=== PATIENT | female | born 1990 | race Two or more races ===

== ENCOUNTER 2020-11-16 06:33 | Inpatient (IN) | payer MEDICAID ==
[2020-11-16] MEDS ORDERED: Carboprost Tromethamine 250 MCG/1 ML Amp IM PRN (07:08)
[2020-11-16] MEDS ORDERED: Methylergonovine 0.2 MG/1 ML Amp IM PRN ×2 (07:08→10:06)
[2020-11-16] MEDS ORDERED: Sodium Chloride 0.9% 10 ML Syringe FLUSH PRN (07:08)
[2020-11-16] MEDS ORDERED: Sodium Chloride 0.9% 10 ML SDV IV PRN (07:08)
[2020-11-16] MEDS ORDERED: Sodium Chloride 0.9% 2.5 ML Syringe FLUSH PRN (07:08)
[2020-11-16] MEDS ORDERED: Nalbuphine 10 MG/1 ML Vial IVPUSH PRN (07:08)
[2020-11-16] MEDS ORDERED: Water For Irrigation,Sterile 1,000 ML Container IRR PRN (07:08)
[2020-11-16] MEDS ORDERED: Butorphanol 1 MG/ML SDV IVPUSH PRN (07:08)
[2020-11-16] MEDS ORDERED: Lidocaine 1% 50 ML MDV INJECT PRN (07:08)
[2020-11-16] MEDS ORDERED: Tranexamic Acid 1,000 MG in Sodium Chloride 0.9% 100 ML IV PRN (07:08)
[2020-11-16] MEDS ORDERED: Misoprostol 200 MCG Tab PO PRN (07:08)
[2020-11-16] MEDS ORDERED: Oxytocin/0.9 % Sodium Chloride 30 UNIT/500 ML BAG IV SCH (07:15)
--- NOTE | 2020-11-16 07:19 | PCM.PREANE ---
Preanesthetic Assessment - Anesthesia/Transfusion/Family Hx Anesthesia History: No Prior Anesthesia Family History of Anesthesia Reaction: No Transfusion History: No Prior Transfusion(s) - Review of Systems General: No Symptoms Pulmonary: No Symptoms Cardiovascular: No Symptoms Gastrointestinal: No Symptoms Neurological: No Symptoms Other: Reports: None - Physical Assessment NPO Status Date: 11/16/20 ASA Class: 2 Mental Status: Alert & Oriented x3 Dentition: Reports: Normal Dentition Thyro-Mental Finger Breadths: 3 Mouth Opening Finger Breadths: 3 ROM/Head Extension: Full Lungs: Clear to Auscultation, Normal Respiratory Effort Cardiovascular: Regular Rate, Regular Rhythm - Allergies Allergies/Adverse Reactions: Allergies Allergy/AdvReac Type Severity Reaction Status Date / Time No Known Allergies Allergy Verified 04/14/18 22:39 - Blood Blood Available: No Product(s) Available: None - Anesthesia Plan Pre-Op Medication Ordered: None - Acknowledgements Anesthesia Type Planned: Epidural Pt an Appropriate Candidate for the Planned Anesthesia: Yes Alternatives and Risks of Anesthesia Discussed w Pt/Guardian: Yes Pt/Guardian Understands and Agrees with Anesthesia Plan: Yes PreAnesthesia Questionnaire - Past Health History Medical/Surgical History: Denies 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: - Infectious Disease History Infectious Disease History: Reports: Chicken Pox - HOME MEDS Home Medications: Home Meds Norethindrone [Maggie] 0.35 mg PO DAILY 07/06/16 [History] - CURRENT (IN HOUSE) MEDS Current Meds: Current Medications Butorphanol Tartrate (Butorphanol 1 Mg/Ml Sdv) 1 mg IVPUSH Q1H PRN PRN Reason: Pain (severe 7-10) Carboprost Tromethamine (Carboprost Tromethamine 250 Mcg/1 Ml Amp) 250 mcg IM ASDIRECTED PRN PRN Reason: Post Hemorrhage Oxytocin/Sodium Chloride (Oxytocin 30 Unit/500 Ml-Ns) 30 unit in 500 mls @ 999 mls/hr IV TITRATE ELLEN Tranexamic Acid 1,000 mg/ (Sodium Chloride) 110 mls @ 660 mls/hr IV ONETIME PRN PRN Reason: Bleeding Lactated Ringer's (Ringers, Lactated) 1,000 mls @ 150 mls/hr IV ASDIRECTED ELLEN Lidocaine HCl (Lidocaine 1% 50 Ml Mdv) 50 ml INJECT ONETIME PRN PRN Reason: Laceration repair Methylergonovine Maleate (Methylergonovine 0.2 Mg/1 Ml Amp) 0.2 mg IM ASDIRECTED PRN PRN Reason: Post Hemorrhage Misoprostol (Misoprostol 200 Mcg Tab) 200 mcg PO ONETIME PRN PRN Reason: Post Hemorrhage Nalbuphine HCl (Nalbuphine 10 Mg/1 Ml Vial) 10 mg IVPUSH Q1H PRN PRN Reason: Pain (severe 7-10) Sodium Chloride (Sodium Chloride 0.9% 10 Ml Syringe) 10 ml FLUSH ASDIRECTED PRN PRN Reason: Keep Vein Open Sodium Chloride (Sodium Chloride 0.9% 2.5 Ml Syringe) 2.5 ml FLUSH ASDIRECTED PRN PRN Reason: Keep Vein Open Sodium Chloride (Sodium Chloride 0.9% 10 Ml Sdv) 10 ml IV ASDIRECTED PRN PRN Reason: IV Use Sterile Water (Water For Irrigation,Sterile 1,000 Ml Container) 1,000 ml IRR ASDIRECTED PRN PRN Reason: delivery
[2020-11-16] MEDS: Lactated Ringers 1,000 ML IV SCH ×3 (07:23→10:01)
[2020-11-16] MEDS ORDERED: fentaNYL 100 MCG/2 ML SDV ONE (07:24)
[2020-11-16] MEDS ORDERED: Ropivacaine HCl/PF 200 ML ONE (07:24)
--- NOTE | 2020-11-16 07:42 | PCM.LDHP ---
L&D History of Present Illness - General Date of Service: 11/16/20 Admit Problem/Dx: Patient Status Order with Admit Dx/Problem 11/16/20 07:08 Patient Status [ADT] Routine Admission Diagnosis/Problem Admission Diagnosis/Problem Source of Information: Patient History Limitations: Reports: No Limitations - History of Present Illness Introduction:: 29 year old at 39w2d (EDC 11/21/2020) presented to labor and delivery in spontaneous labor. Reports contractions started last evening around 2100 and were occurring every 2 minutes prior to admission. Denies leaking fluid or vaginal bleeding. Good movement. has been uncomplicated, however, she had growth restriction in a previous . - Related Data Allergies/Adverse Reactions: Allergies Allergy/AdvReac Type Severity Reaction Status Date / Time No Known Allergies Allergy Verified 04/14/18 22:39 Home Medications: Home Meds Norethindrone [Maggie] 0.35 mg PO DAILY 07/06/16 [History] Past Medical History - Past Health History Medical/Surgical History: Denies Medical/Surgical History [employer] History: Reports: - Infectious Disease History Infectious Disease History: Reports: Chicken Pox Social & Family History - Family History Family Medical History: No Pertinent Family History - Caffeine Use Caffeine Use: Reports: Coffee H&P Review of Systems - Review of Systems: Review Of Systems: See Below General: Reports: No Symptoms HEENT: Reports: No Symptoms Pulmonary: Reports: No Symptoms Cardiovascular: Reports: No Symptoms Gastrointestinal: Reports: Abdominal Pain Genitourinary: Reports: No Symptoms Musculoskeletal: Reports: Back Pain Skin: Reports: No Symptoms Psychiatric: Reports: No Symptoms Neurological: Reports: No Symptoms Hematologic/Lymphatic: Reports: No Symptoms Immunologic: Reports: No Symptoms L&D Exam - Exam Exam: See Below - OB Specific Contraction Frequency (min): 2-3 minutes Contraction Intensity: Moderate to Strong Movement: Active Heart Tones: Present Heart Tones per Min: 140 Heart Rate (FHR) Variability: Moderate (6-25 bmp) Presentation: Vertex Estimated Weight: 3100 grams by 36w1d ultrasound - Patel Score Patel Score Cervix Position: Anterior Patel Score Consistency: Soft Patel Score Effacement: >80% Patel Score Dilation: > 5 cm Patel Score Infant's Station: -2 Patel Score Total: 11 - Exam General: Alert Lungs: Normal Respiratory Effort Cardiovascular: Regular Rate GI/Abdominal Exam: Soft, Non-Tender Genitourinary: Normal external exam Back Exam: Normal Inspection, Full Range of Motion Extremities: Normal Inspection, Normal Range of Motion, Non-Tender, No Pedal Edema Skin: Warm, Dry, Intact - Patient Data Lab Results Last 24 hrs: Laboratory Results - last 24 hr 11/16/20 Range/Units 07:01 WBC 13.49 H (4.0-11.0) K/uL RBC 4.57 (4.30-5.90) M/uL Hgb 14.6 (12.0-16.0) g/dL Hct 41.9 (36.0-46.0) % MCV 91.7 (80.0-98.0) fL MCH 31.9 (27.0-32.0) pg MCHC 34.8 (31.0-37.0) g/dL RDW Std Deviation 47.2 (28.0-62.0) fl RDW Coeff of Barrie 14 (11.0-15.0) % Plt Count 251 (150-400) K/uL MPV 9.90 (7.40-12.00) fL Nucleated RBC % 0.0 /100WBC Nucleated RBCs # 0 K/uL Result Diagrams: 11/16/20 07:01 Problem List Initiated/Reviewed/Updated: Yes Orders Last 24hrs: Active Orders 24 hr Category Date Time Status Patient Status [ADT] Routine ADT 11/16/20 07:08 Active Heart Tones [RC] CONTINUOUS Care 11/16/20 07:08 Active Non Stress Test [RC] PER UNIT ROUTINE Care 11/16/20 07:08 Active May Shower [RC] ASDIRECTED Care 11/16/20 07:08 Active Notify Provider [RC] PRN Care 11/16/20 07:08 Active Up ad Bailee [RC] ASDIRECTED Care 11/16/20 07:08 Active Vaginal Exam [RC] PRN Care 11/16/20 07:08 Active Vital Signs [RC] PER UNIT ROUTINE Care 11/16/20 07:08 Active CORONAVIRUS COVID-19 ALEC [MOLEC] Routine Lab 11/16/20 07:08 Received RPR (SYPHILIS SERO) W/ RFLX [REF] Routine Lab 11/16/20 07:01 Received TYPE AND SCREEN [BBK] Routine Lab 11/16/20 07:01 Received Butorphanol [Stadol] Med 11/16/20 07:08 Active 1 mg IVPUSH Q1H PRN Carboprost Tromethamine [Hemabate DS] Med 11/16/20 07:08 Active 250 mcg IM ASDIRECTED PRN Lactated Ringers [Ringers, Lactated] 1,000 ml Med 11/16/20 07:15 Active IV ASDIRECTED Lidocaine 1% [Xylocaine 1%] Med 11/16/20 07:08 Active 50 ml INJECT ONETIME PRN Methylergonovine [Methergine] Med 11/16/20 07:08 Active 0.2 mg IM ASDIRECTED PRN Nalbuphine [Nubain] Med 11/16/20 07:08 Active 10 mg IVPUSH Q1H PRN Oxytocin/0.9 % Sodium Chloride [Oxytocin 30 Unit/500 ML Med 11/16/20 07:15 Active -NS] 30 unit in 500 ml IV TITRATE Sodium Chloride 0.9% [Normal Saline] Med 11/16/20 07:08 Active 10 ml IV ASDIRECTED PRN Sodium Chloride 0.9% [Saline Flush] Med 11/16/20 07:08 Active 2.5 ml FLUSH ASDIRECTED PRN Tranexamic Acid [Cyklokapron] 1,000 mg Med 11/16/20 07:08 Active Sodium Chloride 0.9% [Normal Saline] 100 ml IV ONETIME Water For Irrigation,Sterile [Sterile Water for Med 11/16/20 07:08 Active Irrigation] 1,000 ml IRR ASDIRECTED PRN miSOPROStoL [Cytotec] Med 11/16/20 07:08 Active 200 mcg PO ONETIME PRN Scalp Electrode [WOMSER] Per Unit Routine Oth 11/16/20 07:08 Ordered Peripheral IV Insertion Adult [OM.PC] Routine Oth 11/16/20 07:08 Ordered Resuscitation Status Routine Resus Stat 11/16/20 07:08 Ordered Medication Orders Butorphanol Tartrate (Butorphanol 1 Mg/Ml Sdv) 1 mg IVPUSH Q1H PRN PRN Reason: Pain (severe 7-10) Carboprost Tromethamine (Carboprost Tromethamine 250 Mcg/1 Ml Amp) 250 mcg IM ASDIRECTED PRN PRN Reason: Post Hemorrhage Oxytocin/Sodium Chloride (Oxytocin 30 Unit/500 Ml-Ns) 30 unit in 500 mls @ 999 mls/hr IV TITRATE [facility] Tranexamic Acid 1,000 mg/ (Sodium Chloride) 110 mls @ 660 mls/hr IV ONETIME PRN PRN Reason: Bleeding Lactated Ringer's (Ringers, Lactated) 1,000 mls @ 150 mls/hr IV ASDIRECTED ELLEN Last Admin: 11/16/20 07:30 Dose: 150 mls/hr Documented by: Infusion: 11/16/20 07:30 Dose: 150 mls/hr Documented by: Admin: 11/16/20 07:23 Dose: 150 mls/hr Documented by: DAJA Lidocaine HCl (Lidocaine 1% 50 Ml Mdv) 50 ml INJECT ONETIME PRN PRN Reason: Laceration repair Methylergonovine Maleate (Methylergonovine 0.2 Mg/1 Ml Amp) 0.2 mg IM ASDIRECTED PRN PRN Reason: Post Hemorrhage Misoprostol (Misoprostol 200 Mcg Tab) 200 mcg PO ONETIME PRN PRN Reason: Post Hemorrhage Nalbuphine HCl (Nalbuphine 10 Mg/1 Ml Vial) 10 mg IVPUSH Q1H PRN PRN Reason: Pain (severe 7-10) Sodium Chloride (Sodium Chloride 0.9% 2.5 Ml Syringe) 2.5 ml FLUSH ASDIRECTED PRN PRN Reason: Keep Vein Open Sodium Chloride (Sodium Chloride 0.9% 10 Ml Sdv) 10 ml IV ASDIRECTED PRN PRN Reason: IV Use Sterile Water (Water For Irrigation,Sterile 1,000 Ml Container) 1,000 ml IRR ASDIRECTED PRN PRN Reason: delivery Assessment/Plan Comment:: 29 year old at 39w2d (EDC 11/21/2020) in spontaneous labor * Admit to labor and delivery * COVID-19 test negative * Epidural for pain management * Proceed with expectant management of labor, 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
--- NOTE | 2020-11-16 07:53 | PCM.POSTAN ---
POST ANESTHESIA ASSESSMENT - MENTAL STATUS Mental Status: Alert, Oriented - RESPIRATORY Respiratory Status: Respiratory Rate WNL - CARDIOVASCULAR CV Status: Pulse Rate WNL - GASTROINTESTINAL GI Status: No Symptoms - POST OP HYDRATION Hydration Status: Adequate & Stable (epidural in and pt is comfortable at this time)
[2020-11-16] MEDS ORDERED: Witch Hazel Medicated Pads 40/Jar TOP PRN (10:06)
[2020-11-16] MEDS ORDERED: Lanolin 100% Cream 7 GM Tube TOP PRN (10:06)
[2020-11-16] MEDS ORDERED: Bisacodyl 10 MG Supp RECTAL PRN (10:06)
[2020-11-16] MEDS ORDERED: Ibuprofen 400 MG Tab PO PRN (10:06)
[2020-11-16] MEDS ORDERED: Acetaminophen 500 MG Tab PO PRN (10:06)
[2020-11-16] MEDS ORDERED: Benzocaine/Menthol 20%-0.5% Spray 78 GM Cannister TOP PRN (10:06)
[2020-11-16] MEDS ORDERED: Docusate Sodium 100 MG Cap PO PRN (10:06)
--- NOTE | 2020-11-16 10:10 | PCM.OPNOTE ---
- General Post-Op/Procedure Note Date of Surgery/Procedure: 11/16/20 Operative Procedure(s): TSVD Findings: Liveborn male 9/9 weight pending. Placenta spontaneous Schultze intact with 3 vessels perineum intact Pre Op Diagnosis: 39 weeks active spontaneous labor Post-Op Diagnosis: Same Anesthesia Technique: Epidural Primary Surgeon: Anne Marie Avila Pathology: none EBL in mLs: 300 Complications: None [place]. Condition: Good
[2020-11-16] MEDS: Ibuprofen 800 MG Tab PO PRN ×2 (14:41→21:10)
[2020-11-16] MEDS: Acetaminophen 500 MG Tab PO PRN ×2 (16:48→21:10)
[2020-11-17] MEDS: Acetaminophen 500 MG Tab PO PRN ×2 (01:13→05:28)
[2020-11-17] MEDS: Ibuprofen 800 MG Tab PO PRN ×2 (03:15→11:22)
--- NOTE | 2020-11-17 07:07 | PCM48HPAN ---
Post Anesthesia Note - EVALUATION WITHIN 48HRS OF ANESTHETIC Vital Signs in Normal Range: Yes Patient Participated in Evaluation: Yes Respiratory Function Stable: Yes Airway Patent: Yes Cardiovascular Function Stable: Yes Hydration Status Stable: Yes Pain Control Satisfactory: Yes Nausea and Vomiting Control Satisfactory: Yes Mental Status Recovered: Yes Vital Signs: Last Vital Signs Temp 36.6 C 11/17/20 03:20 Pulse 97 11/16/20 19:56 Resp 17 11/17/20 03:20 BP 141/82 H 11/17/20 03:20 Pulse Ox 96 11/17/20 03:20
[2020-11-17 08:14] VITALS: BP 114/75; PULSE 103
--- NOTE | 2020-11-17 08:42 | OR ---
SURGEON: Anne Marie Avila M.D. DATE OF PROCEDURE: 11/16/2020 DELIVERY NOTE: PREOPERATIVE DIAGNOSIS: A 39-week intrauterine , active spontaneous labor. POSTOPERATIVE DIAGNOSIS: A 39-week intrauterine , active spontaneous labor. PROCEDURE: Term spontaneous vaginal delivery. PRIMARY SURGEON: Anne Marie Avila M.D. ANESTHESIA: Epidural. ESTIMATED BLOOD LOSS: Less than 300 mL. FINDINGS: Live-born male. score of 9 and nine. Weight is pending at dictation. COMPLICATIONS: None known. DISPOSITION: Stable to Recovery. PATHOLOGY SPECIMEN: None. BRIEF HISTORY: This is a 29-year-old female. She is G3, P2-0-0-2. She presented at 39-2/7 weeks' gestation with active spontaneous labor, 5 cm dilated. She requested an epidural upon arrival. She was admitted and she received an epidural for pain control which worked very well. She had artificial rupture of membranes when she was 5 to 6 cm dilated. She progressed to complete. DESCRIPTION OF PROCEDURE: With the patient in dorsal lithotomy position, the patient pushed over 2 contractions to a 5+ station, at which time the head was delivered spontaneously and atraumatically over the perineum with support with subsequent delivery of the infant's shoulders and body without any difficulty. The was bulb suctioned by nose and mouth, and after 1 minute, the cord was doubly clamped and cut, and the was handed to the mother in the presence of the nurse attending delivery. The infant is a liveborn male, score of 9 and nine, weight is pending. Cord blood was collected for cord ABGs as well as routine cord blood sampling. Pitocin was initiated after delivery of the to assist with delivery of the placenta which was delivered spontaneously, Schultze intact with 3 vessels. Upon inspection of pelvis and perineum, there were no periurethral, vaginal sidewall, cervical or rectal lacerations. EBL was less than 300 mL. There were no known complications. Mother and baby remained in LDR in good condition. DAVE / AMINAH /[id number]
--- NOTE | 2020-11-17 08:50 | PCM.PNPP ---
- General Info Date of Service: 11/17/20 Admission Dx/Problem (Free Text): Patient Status Order with Admit Dx/Problem 11/16/20 07:08 Patient Status [ADT] Routine Admission Diagnosis/Problem Admission Diagnosis/Problem Subjective Update: Walking about room during rounds. Pain well controlled. Ambulating and voiding without difficulty. Lochia decreasing. Tolerating regular diet. and supplementing for baby. - General Info Date of Service: 11/17/20 - Patient Data Vital Signs - Most Recent: Last Vital Signs Temp 97.8 F 11/17/20 08:13 Pulse 103 H 11/17/20 08:13 Resp 18 11/17/20 08:13 BP 114/75 11/17/20 08:13 Pulse Ox 94 L 11/17/20 08:13 Weight - Most Recent: 135 lb Lab Results - Last 24 Hours: Laboratory Results - last 24 hr 11/16/20 11/17/20 Range/Units 09:42 04:50 Hgb 13.0 (12.0-16.0) g/dL Hct 38.4 (36.0-46.0) % Cord ABG pH 7.276 (7.18-7.38) Cord ABG Base Excess -3.2 (-10--2) Cord VBG pH 7.386 (7.25-7.45) Cord VBG Base Excess -0.5 H (-10--2) Med Orders - Current: Current Medications Acetaminophen (Acetaminophen 500 Mg Tab) 500 mg PO Q4H PRN PRN Reason: Pain (mild 1-3) Acetaminophen (Acetaminophen 500 Mg Tab) 1,000 mg PO Q4H PRN PRN Reason: Pain (mild 1-3) Last Admin: 11/17/20 05:28 Dose: 1,000 mg Documented by: Benzocaine/Menthol (Benzocaine/Menthol 20%-0.5% [place] 78 Gm Cannister) 78 gm TOP ASDIRECTED PRN PRN Reason: Perineal Comfort Measure Last Admin: 11/16/20 15:39 Dose: 1 canister Documented by: Bisacodyl (Bisacodyl 10 Mg Supp) 10 mg RECTAL ONETIME PRN PRN Reason: Constipation Docusate Sodium (Docusate Sodium 100 Mg Cap) 100 mg PO Q12H PRN PRN Reason: Constipation Emollient Ointment (Lanolin 100% Cream 7 Gm Tube) 0 gm TOP ASDIRECTED PRN PRN Reason: Sore Nipples Last Admin: 11/16/20 15:39 Dose: 1 tube Documented by: Ibuprofen (Ibuprofen 400 Mg Tab) 400 mg PO Q4H PRN PRN Reason: Pain (mild 1-3) Ibuprofen (Ibuprofen 800 Mg Tab) 800 mg PO Q6H PRN PRN Reason: Pain (mild 1-3) Last Admin: 11/17/20 03:15 Dose: 800 mg Documented by: Methylergonovine Maleate (Methylergonovine 0.2 Mg/1 Ml Amp) 0.2 mg IM ONETIME PRN PRN Reason: Excessive Vaginal Bleeding Witch Claudia (Witch Claudia Medicated Pads 40/Jar) 1 pad TOP ASDIRECTED PRN PRN Reason: comfort care Last Admin: 11/16/20 15:38 Dose: 1 tub Documented by: Discontinued Medications Butorphanol Tartrate (Butorphanol 1 Mg/Ml Sdv) 1 mg IVPUSH Q1H PRN PRN Reason: Pain (severe 7-10) Carboprost Tromethamine (Carboprost Tromethamine 250 Mcg/1 Ml Amp) 250 mcg IM ASDIRECTED PRN PRN Reason: Post Hemorrhage Fentanyl (Fentanyl 100 Mcg/2 Ml Sdv) Confirm Administered Dose 100 mcg .ROUTE .Lesson Prep-MED ONE Stop: 11/16/20 07:25 Oxytocin/Sodium Chloride (Oxytocin 30 Unit/500 Ml-Ns) 30 unit in 500 mls @ 999 mls/hr IV TITRATE [facility] Last Admin: 11/16/20 10:01 Dose: 999 mls/hr Documented by: Tranexamic Acid 1,000 mg/ (Sodium Chloride) 110 mls @ 660 mls/hr IV ONETIME PRN PRN Reason: Bleeding Lactated Ringer's (Ringers, Lactated) 1,000 mls @ 150 mls/hr IV ASDIRECTED [facility] Last Admin: 11/16/20 10:01 Dose: 150 mls/hr Documented by: Ropivacaine (Naropin 0.2%) Confirm Administered Dose 200 mls @ as directed .ROUTE .Lesson Prep-MED ONE Stop: 11/16/20 07:25 Lidocaine HCl (Lidocaine 1% 50 Ml Mdv) 50 ml INJECT ONETIME PRN PRN Reason: Laceration repair Methylergonovine Maleate (Methylergonovine 0.2 Mg/1 Ml Amp) 0.2 mg IM ASDIRECTED PRN PRN Reason: Post Hemorrhage Misoprostol (Misoprostol 200 Mcg Tab) 200 mcg PO ONETIME PRN PRN Reason: Post Hemorrhage Nalbuphine HCl (Nalbuphine 10 Mg/1 Ml Vial) 10 mg IVPUSH Q1H PRN PRN Reason: Pain (severe 7-10) Sodium Chloride (Sodium Chloride 0.9% 2.5 Ml Syringe) 2.5 ml FLUSH ASDIRECTED PRN PRN Reason: Keep Vein Open Sodium Chloride (Sodium Chloride 0.9% 10 Ml Sdv) 10 ml IV ASDIRECTED PRN PRN Reason: IV Use Sterile Water (Water For Irrigation,Sterile 1,000 Ml Container) 1,000 ml IRR ASDIRECTED PRN PRN Reason: delivery - Infant Interaction Infant Interaction: Holding Infant Infant Feeding: Attempted ; Nursed Fair/Poor, Other (see below) (supplementing with formula) Support Person: - Recovery Exam Fundal Tone: Firm Fundal Level: At Umbilicus Fundal Placement: Midline Lochia Amount: Scant Lochia Color: Rubra/Red Perineum Description: Intact, Minimal Bruising/Swelling Episiotomy/Laceration: None Bladder Status: Voiding - Exam General: Alert Lungs: Normal Respiratory Effort Cardiovascular: Regular Rate GI/Abdominal Exam: Soft, Non-Tender Extremities: Normal Range of Motion, Non-Tender, Pedal Edema (trace) Skin: Warm, Dry, Intact Neurological: No New Focal Deficit Psy/Mental Status: Normal Mood - Problem List Review Problem List Initiated/Reviewed/Updated: Yes - Plan Plan:: 29 year old PPD1 s/p - Meeting milestones. Desires discharge today. - Reviewed discharge instructions. Patient desires progesterone-only pill for contraception, Rx sent to pharmacy. - Patient to return to clinic in 4 weeks for appointment.
== END 2020-11-17 13:12 | disposition home or self-care (01) | DRG 807 ==
LOC: MW.OBCHECK 06:33 → MW.OB 06:35 → MW.OBCHECK 07:08 → MW.OB 07:08 → OBSVTOIN 09:42 → MW.OB 12:35
PROVIDERS: ADMIT Obstetrics & Gynecology; ATTEND Obstetrics & Gynecology
PROC: 10E0XZZ Delivery of Products of Conception, External Approach (ICD-10-PCS; principal; 2020-11-16)
PROC: 10907ZC Drainage of Amniotic Fluid, Therapeutic from Products of Conception, Via Natural or Artificial Opening (ICD-10-PCS; 2020-11-16)
PROC: 3E0R3BZ Introduction of Anesthetic Agent into Spinal Canal, Percutaneous Approach (ICD-10-PCS; 2020-11-16)
DX: O80 Encounter for full-term uncomplicated delivery (principal); Z37.0 Single live birth; Z3A.39 39 weeks gestation of pregnancy; Z20.822 Contact with and (suspected) exposure to COVID-19
CPT/HCPCS: 36415; 59025; 59409; 82803; 85014; 85018; 85027; 86592; 86850; 86900; 86901; A9270-GY; J2590; J3010; J7120; U0002